=== PATIENT | male | born 1930 | race Caucasian/White ===

== ENCOUNTER 2017-09-20 23:09 | Inpatient (IN) | payer OTHER, BC ==
[~2017-09-20] VITALS: Ht 177.8 cm; Wt 64.9 kg
[~2017-09-20 23:09] MED LIST: ACTOS30 MG PO; ADULT LOW DOSE81 M1 PO; ALLOPURINOL100 MG PO; AMLODIPINE BES2.5 MG PO; APRESOLINE25 MG PO; ATORVASTATIN CA40 MG PO; BENAZEPRIL HCL20 MG PO; BENAZEPRIL HCL40 MG PO; BETAPACE80 MG PO; BREO ELLIPTA I1 EACH IH; CARVEDILOL25 MG PO; HYDROCODON-ACE1 EAC7 PO; MEN'S MULTI-VI1 EACH PO; NORVASC5 MG PO; PREDNISONE20 MG PO; SIMVASTATIN80 MG PO; SOTALOL80 MG PO; XARELTO15 MG PO
[2017-09-20 23:26] LABS: HEMATOCRIT 35.2 % (38.0-50.0); HEMOGLOBIN 10.9 G/DL (12.5-16.6); MCH 30.2 PG (29.0-34.0); MCV 97.5 FL (86-99); PLATELET COUNT 271 K/uL (156-360); RBC DIS.WIDTH-CV 15.8 % (11.8-14.6); RBC DIS.WIDTH-SD 56.6 % (39-53); RED BLOOD COUNT 3.61 M/uL (4.00-5.50); WHITE BLOOD COUNT 15.7 K/uL (4.1-10.2)
[2017-09-20 23:37] LABS: INTER. NORMALIZED RATIO 1.9
[2017-09-20 23:39] LABS: CHLORIDE 102 mEq/L (99-109); POTASSIUM 4.4 mEq/L (3.7-5.4); SODIUM 140 mEq/L (136-147)
[2017-09-20 23:40] LABS: PTT 35.7 SEC (25-37)
[2017-09-20 23:49] LABS: TROP-I INTERPRETATION NEGATIVE; TROPONIN-I 0.02 ng/mL (0.0-0.30)
[2017-09-20 23:52] LABS: ALBUMIN 3.3 g/dL (3.2-4.8)
[2017-09-20 23:54] LABS: GLUCOSE 185 mg/dL (70-99)
[2017-09-20 23:55] LABS: TOTAL PROTEIN 6.7 g/dL (6.4-8.3)
[2017-09-20 23:56] LABS: TOTAL BILIRUBIN 0.3 mg/dL (0.0-1.0)
[2017-09-20 23:58] LABS: ALKALINE PHOSPHATASE 126 IU/L (3-129); CREATININE 1.8 mg/dL (0.6-1.3); GFR ESTIMATE (CALCULATED) 38 mL/min/ (58.99-99999)
[2017-09-20 23:59] LABS: UREA NITROGEN (BUN) 42 mg/dL (9-23)
[2017-09-21] LABS: AST (GOT) 20 IU/L (2-34)
[2017-09-21 00:01] LABS: ALT (GPT) 11 IU/L (3-49); LIPASE 37 U/L (1.0-51.0)
[2017-09-21] MEDS ORDERED: COZAAR100 MG PO (00:53)
[2017-09-21] MEDS ORDERED: MICROZIDE12.5 M1 PO (00:56)
[2017-09-21] MEDS ORDERED: INCRUSE ELLI62.5 MCG IH (00:57)
[2017-09-21 04:50] VITALS: BP 137/62
[2017-09-21 05:26] LABS: APPEARANCE CLEAR ((CLEAR)); BILIRUBIN NEGATIVE; BLOOD SMALL; COLOR YELLOW ((YELLOW)); GLUCOSE (STRIP) NEGATIVE; KETONES NEGATIVE; LEUKOCYTES NEGATIVE; NITRITE NEGATIVE; PROTEIN (STRIP) NEGATIVE; SPECIFIC GRAVITY 1.032 (1.000-1.030); UROBILINOGEN 0.2 MG/DL (0.2-1.0)
[2017-09-21 05:32] LABS: BACTERIA NONE SEEN /HPF; EPITHELIAL CELLS NONE SEEN /HPF; MUCUS NONE SEEN /LPF; RED BLOOD CELLS 0-5 /HPF (0-5); UCUL ADDED? NO; WHITE BLOOD CELLS 0-5 /HPF (0-5)
[2017-09-21 08:26] VITALS: BP 133/60
[2017-09-21 11:38] VITALS: BP 139/60
[2017-09-21 16:22] VITALS: BP 135/64
[2017-09-21 19:31] VITALS: BP 134/64
[2017-09-21 23:10] VITALS: BP 106/49
[2017-09-22 06:42] LABS: BASOPHIL (%) 0.2 % (0-1); EOSINOPHIL (%) 1.9 % (0-5); EOSINOPHIL COUNT 0.3 K/uL (0-0.3); HEMATOCRIT 27.9 % (38.0-50.0); HEMOGLOBIN 8.8 G/DL (12.5-16.6); IMMATURE GRANULOCYTE (%) 0.3 % (0.0-0.7); LYMPHOCYTE (%) 23.1 % (15-42); LYMPHOCYTE COUNT 3.1 K/uL (1.0-2.8); MCHC 31.5 G/DL (30.0-36.0); MCV 95.2 FL (86-99); MONOCYTE (%) 7.5 % (3-12); NEUTROPHIL COUNT 8.9 K/uL (1.8-6.4); PLATELET COUNT 192 K/uL (156-360); RBC DIS.WIDTH-CV 15.9 % (11.8-14.6); RBC DIS.WIDTH-SD 55.4 % (39-53); RED BLOOD COUNT 2.93 M/uL (4.00-5.50); WHITE BLOOD COUNT 13.3 K/uL (4.1-10.2)
[2017-09-22 07:06] LABS: CHLORIDE 102 MEQ/L (99-109); CREATININE 1.5 MG/DL (0.6-1.3); GFR ESTIMATE (CALCULATED) 47 mL/min/ (58.99-99999); POTASSIUM 4.4 MEQ/L (3.7-5.4); SODIUM 138 MEQ/L (136-147); UREA NITROGEN (BUN) 40 mg/dL (9-23)
[2017-09-22 07:07] LABS: GLUCOSE 98 mg/dL (70-99)
[2017-09-22 08:19] VITALS: BP 126/60
[2017-09-22 11:49] VITALS: BP 147/67
[2017-09-22 11:52] VITALS: BP 147/67
[2017-09-22 20:25] VITALS: BP 132/60
[2017-09-23] VITALS (9 sets, daily range): BP systolic 100–178; BP diastolic 54–74
[2017-09-23 05:56] LABS: HEMATOCRIT 26.8 % (38.0-50.0); HEMOGLOBIN 8.4 G/DL (12.5-16.6); MCH 29.5 PG (29.0-34.0); MCHC 31.3 G/DL (30.0-36.0); PLATELET COUNT 192 K/uL (156-360); RBC DIS.WIDTH-CV 15.7 % (11.8-14.6); RBC DIS.WIDTH-SD 54.3 % (39-53); RED BLOOD COUNT 2.85 M/uL (4.00-5.50); WHITE BLOOD COUNT 11.1 K/uL (4.1-10.2)
[2017-09-23 06:31] LABS: ALBUMIN 2.4 G/DL (3.2-4.8); ALKALINE PHOSPHATASE 71 IU/L (3-129); ALT (GPT) 8 IU/L (3-49); AST (GOT) 13 IU/L (2-34); CHLORIDE 99 MEQ/L (99-109); CREATININE 1.4 MG/DL (0.6-1.3); GFR ESTIMATE (CALCULATED) 51 mL/min/ (58.99-99999); GLUCOSE 101 mg/dL (70-99); POTASSIUM 3.9 MEQ/L (3.7-5.4); SODIUM 135 MEQ/L (136-147); TOTAL BILIRUBIN 0.4 MG/DL (0.0-1.0); UREA NITROGEN (BUN) 36 mg/dL (9-23)
[2017-09-23 22:02] LABS: Neutrophil Cytoplasmic Aby Negative (Negative)
[2017-09-24] MEDS ORDERED: CEFDINIR300 MG PO (06:25)
[2017-09-24] MEDS ORDERED: PREDNISONE20 MG PO (06:25)
[2017-09-24 07:15] VITALS: BP 151/65
[2017-09-24 11:42] VITALS: BP 127/59
[2017-09-24 16:24] VITALS: BP 152/68
== END 2017-09-24 16:33 | disposition home or self-care (01) | DRG 193 ==
LOC: EME → EDBD 23:09 → EME 23:09 → EDOF 09-21 01:50 → 5EAST 09-21 01:50 → ENRESERV 09-21 01:54 → 5EAST 09-21 03:45
PROVIDERS: Emergency Medicine; Hospitalist; Internal Medicine; Internal Medicine Pulmonary Disease
DX: J18.0 Bronchopneumonia, unspecified organism (principal); R04.2 Hemoptysis; J96.21 Acute and chronic respiratory failure with hypoxia; Z79.01 Long term (current) use of anticoagulants; J44.0 Chronic obstructive pulmonary disease with (acute) lower respiratory infection; J44.1 Chronic obstructive pulmonary disease with (acute) exacerbation; I25.10 Atherosclerotic heart disease of native coronary artery without angina pectoris; I48.91 Unspecified atrial fibrillation; Z95.1 Presence of aortocoronary bypass graft; Z95.0 Presence of cardiac pacemaker; Z87.891 Personal history of nicotine dependence; I10 Essential (primary) hypertension; E11.51 Type 2 diabetes mellitus with diabetic peripheral angiopathy without gangrene; E78.5 Hyperlipidemia, unspecified
CPT/HCPCS: 71045; 71046; 71275; 80048; 80053; 81003; 83605; 83690; 84484; 85025; 85027; 85610; 85730; 86021 90; 86038; 86235; 86850; 86900; 86901; 87040; 87070; 87205; 87449; 93005; 94640; 94640 76; 94799; 99202; 99281; 99285; J0456; J0696; J2405; J7120; J7512; J7644

== ENCOUNTER 2017-12-21 21:16 | Inpatient (IN) | payer OTHER, BC ==
[~2017-12-21] VITALS: Ht 175.3 cm; Wt 57.7 kg
[~2017-12-21 21:16] MED LIST changes: +CEFDINIR300 MG PO; +COZAAR100 MG PO; +INCRUSE ELLI62.5 MCG IH; +MICROZIDE12.5 M1 PO
[2017-12-21 21:43] LABS: BASOPHIL (%) 0.5 % (0-1); BASOPHIL COUNT 0.1 K/uL (0-0.1); EOSINOPHIL (%) 2.1 % (0-5); EOSINOPHIL COUNT 0.2 K/uL (0-0.3); HEMATOCRIT 34.9 % (38.0-50.0); HEMOGLOBIN 11.1 G/DL (12.5-16.6); IMMATURE GRANULOCYTE (%) 0.5 % (0.0-0.7); LYMPHOCYTE COUNT 2.4 K/uL (1.0-2.8); MCH 29.4 PG (29.0-34.0); MCHC 31.8 G/DL (30.0-36.0); MCV 92.3 FL (86-99); MONOCYTE (%) 7.9 % (3-12); MONOCYTE COUNT 0.8 K/uL (0-0.8); PLATELET COUNT 250 K/uL (156-360); RBC DIS.WIDTH-CV 14.8 % (11.8-14.6); RBC DIS.WIDTH-SD 50.6 % (39-53); RED BLOOD COUNT 3.78 M/uL (4.00-5.50); WHITE BLOOD COUNT 10.6 K/uL (4.1-10.2)
[2017-12-21 21:53] LABS: INTER. NORMALIZED RATIO 2.3
[2017-12-21 21:55] LABS: CHLORIDE 103 mEq/L (99-109); POTASSIUM 4.7 mEq/L (3.7-5.4); SODIUM 140 mEq/L (136-147)
[2017-12-21 21:56] LABS: PTT 44.3 SEC (25-37)
[2017-12-21 21:57] LABS: GLUCOSE 140 mg/dL (70-99)
[2017-12-21 22:01] LABS: CREATININE 1.3 mg/dL (0.6-1.3); GFR ESTIMATE (CALCULATED) 56 mL/min/ (58.99-99999)
[2017-12-21 22:02] LABS: UREA NITROGEN (BUN) 40 mg/dL (9-23)
[2017-12-21 22:09] LABS: TROP-I INTERPRETATION NEGATIVE; TROPONIN-I 0.01 ng/mL (0.0-0.30)
[2017-12-22] MEDS ORDERED: TRELEGY ELLIPT1 EACH IH (01:46)
[2017-12-22] MEDS ORDERED: XARELTO15 MG PO (01:46)
[2017-12-22] MEDS ORDERED: SINGULAIR10 MG PO (01:47)
[2017-12-22 03:48] VITALS: BP 166/72
[2017-12-22 07:12] LABS: HEMATOCRIT 31.4 % (38.0-50.0); HEMOGLOBIN 10.2 G/DL (12.5-16.6); MCH 29.6 PG (29.0-34.0); MCHC 32.5 G/DL (30.0-36.0); PLATELET COUNT 228 K/uL (156-360); RBC DIS.WIDTH-CV 14.8 % (11.8-14.6); RED BLOOD COUNT 3.45 M/uL (4.00-5.50); WHITE BLOOD COUNT 11.2 K/uL (4.1-10.2)
[2017-12-22 07:33] LABS: ALBUMIN 2.8 G/DL (3.2-4.8); ALKALINE PHOSPHATASE 95 IU/L (3-129); ALT (GPT) 8 IU/L (3-49); AST (GOT) 14 IU/L (2-34); CHLORIDE 102 MEQ/L (99-109); CREATININE 1.1 MG/DL (0.6-1.3); GFR ESTIMATE (CALCULATED) > 59 mL/min/ (58.99-99999); GLUCOSE 185 mg/dL (70-99); POTASSIUM 4.5 MEQ/L (3.7-5.4); SODIUM 138 MEQ/L (136-147); TOTAL BILIRUBIN 0.3 MG/DL (0.0-1.0); TOTAL PROTEIN 5.8 G/DL (6.4-8.3); UREA NITROGEN (BUN) 36 mg/dL (9-23)
[2017-12-22 07:38] VITALS: BP 153/67
[2017-12-22 10:28] LABS: HEMOGLOBIN A1c (GLYCOHEMOGLOB) 7.1 % (Below 5.7)
[2017-12-22 11:22] VITALS: BP 145/67
[2017-12-22 16:24] VITALS: BP 155/85
[2017-12-22 20:21] VITALS: BP 143/65
[2017-12-23 01:15] VITALS: BP 120/58
[2017-12-23 03:00] VITALS: BP 132/78
[2017-12-23 03:58] VITALS: BP 150/67
[2017-12-23 07:44] VITALS: BP 158/67
[2017-12-23 15:34] VITALS: BP 149/60
[2017-12-24 00:41] VITALS: BP 153/72
[2017-12-24 07:18] LABS: HEMATOCRIT 36.8 % (38.0-50.0); HEMOGLOBIN 11.8 G/DL (12.5-16.6); MCH 29.4 PG (29.0-34.0); MCHC 32.1 G/DL (30.0-36.0); MCV 91.5 FL (86-99); PLATELET COUNT 267 K/uL (156-360); RBC DIS.WIDTH-CV 14.7 % (11.8-14.6); RBC DIS.WIDTH-SD 49.2 % (39-53); RED BLOOD COUNT 4.02 M/uL (4.00-5.50); WHITE BLOOD COUNT 22.1 K/uL (4.1-10.2)
[2017-12-24 07:48] LABS: ALKALINE PHOSPHATASE 99 IU/L (3-129); ALT (GPT) 9 IU/L (3-49); AST (GOT) 17 IU/L (2-34); CHLORIDE 98 MEQ/L (99-109); CREATININE 1.2 MG/DL (0.6-1.3); GFR ESTIMATE (CALCULATED) > 59 mL/min/ (58.99-99999); GLUCOSE 138 mg/dL (70-99); SODIUM 137 MEQ/L (136-147); TOTAL BILIRUBIN 0.3 MG/DL (0.0-1.0); UREA NITROGEN (BUN) 46 mg/dL (9-23)
[2017-12-24 08:06] VITALS: BP 142/69
[2017-12-24] MEDS ORDERED: DOXYCYCLINE HY100 M3 PO (12:42)
[2017-12-24] MEDS ORDERED: BENZONATATE100 MG PO (12:43)
[2017-12-24] MEDS ORDERED: PREDNISONE20 MG PO (12:44)
== END 2017-12-24 14:15 | disposition home or self-care (01) | DRG 194 ==
LOC: EME → EDBD 21:16 → EME 21:16 → EDOF 12-22 02:45 → 2EASTP 12-22 02:45 → ENRESERV 12-22 02:46 → 2EASTP 12-22 03:37
PROVIDERS: Emergency Medicine; Internal Medicine
DX: J18.9 Pneumonia, unspecified organism (principal); R04.2 Hemoptysis; J96.11 Chronic respiratory failure with hypoxia; J44.1 Chronic obstructive pulmonary disease with (acute) exacerbation; J44.0 Chronic obstructive pulmonary disease with (acute) lower respiratory infection; E11.649 Type 2 diabetes mellitus with hypoglycemia without coma; E78.5 Hyperlipidemia, unspecified; I25.10 Atherosclerotic heart disease of native coronary artery without angina pectoris; I12.9 Hypertensive chronic kidney disease with stage 1 through stage 4 chronic kidney disease, or unspecified chronic kidney disease; F03.90 Unspecified dementia, unspecified severity, without behavioral disturbance, psychotic disturbance, mood disturbance, and anxiety; N18.3 Chronic kidney disease, stage 3 (moderate); I48.2 Chronic atrial fibrillation; E11.22 Type 2 diabetes mellitus with diabetic chronic kidney disease; I28.8 Other diseases of pulmonary vessels; Z99.81 Dependence on supplemental oxygen; Z79.01 Long term (current) use of anticoagulants; Z95.1 Presence of aortocoronary bypass graft; Z95.0 Presence of cardiac pacemaker; Z87.891 Personal history of nicotine dependence; Z83.3 Family history of diabetes mellitus; Z82.49 Family history of ischemic heart disease and other diseases of the circulatory system
CPT/HCPCS: 71045; 71046; 71250; 80048; 80053; 82948; 83036; 84484; 85025; 85027; 85610; 85730; 87116; 87206; 87449; 87502; 93005; 94640; 94760; 94799; 99281; 99285; J1100; J1815; J2930; J7512